=== PATIENT | female | born 1960 | race Hispanic/Latino ===

== ENCOUNTER → 2021-07-03 | Outpatient (CLI) | payer BC ==
[~2021-07-03] MED LIST: SODIUM CHLORIDE 0.9% 500ML 500 ML ONE
== END ==
LOC: CT 12:53
PROVIDERS: ATTEND Urology
DX: R31.0 Gross hematuria (principal); N39.0 Urinary tract infection, site not specified; R39.89 Other symptoms and signs involving the genitourinary system
CPT/HCPCS: 72194; J7040

== ENCOUNTER 2024-10-27 17:07 | Emergency (ER) | payer OTHER ==
[~2024-10-27] VITALS: Ht 152.4 cm; Wt 96.6 kg
[2024-10-27 17:50] VITALS: TEMP 98.1
[2024-10-27 19:16] LABS: BASOPHILS % 0.9 % (0.0-1.0); EOSINOPHILS % 4.0 % (0.0-6.0); LYMPHOCYTES % 20.2 % (18.0-39.1); MONOCYTES % 9.1 % (4.4-11.3); NEUTROPHILS % 59.0 % (38.7-80.0); RED CELL DISTRIBUTION WIDTH 15.8 % (11.7-14.4)
[2024-10-27 19:34] LABS: EST GLOMERULAR FILTRATION RATE 79.0 ML/MIN (>=60)
[2024-10-27 20:45] VITALS: PULSE 70; RESP 20
[2024-10-27] MEDS ORDERED: DOXYCYCLINE HY100 MG PO (20:49)
[2024-10-27] MEDS ORDERED: LASIX20 MG PO (20:49)
[2024-10-27 21:07] VITALS: BP 106/77; PULSE 70; RESP 20; O2SAT 99
== END 2024-10-27 21:05 | disposition home or self-care (01) ==
LOC: ER 18:33
DX: L03.116 Cellulitis of left lower limb (principal); E11.9 Type 2 diabetes mellitus without complications; K76.0 Fatty (change of) liver, not elsewhere classified
CPT/HCPCS: 36415; 71045; 80048; 83880; 85025; 99284